=== PATIENT | male | born 1955 | race Caucasian/White ===

== ENCOUNTER → 2024-03-23 08:36 | Outpatient (REF) | payer MEDICARE, OTHER, SELFPAY ==
[2024-03-23 09:39] LABS: Urine Albumin Negative (Neg - Trace); Urine Bilirubin Negative (Negative); Urine Character Clear (Clear); Urine Color Yellow; Urine Glucose 3+ (Negative); Urine Ketone Negative (Negative); Urine Leukocyte Negative (Negative); Urine Nitrite Negative (Negative); Urine Occult Blood Negative (Negative); Urine Urobilinogen Negative (Neg - 1+)
[2024-03-23 10:18] LABS: Microalbumin, Random Urine < 0.6 mg/dl (0.6-1.7)
[2024-03-23 10:25] LABS: ALT (SGPT) 39 U/L (0-50); AST (SGOT) 29 U/L (17-59); Albumin 4.6 g/dl (3.5-5.0); Alkaline Phosphatase 53 U/L (38-126); Blood Urea Nitrogen 22 mg/dl (9-20); Calcium 9.3 mg/dl (8.4-10.2); Carbon Dioxide 22 mmol/L (22-30); Chloride 100 mmol/L (98-107); Glucose 190 mg/dl (70-99); HDL Cholesterol 43 mg/dl; LDL Cholesterol, Calculated 51 mg/dl; Potassium 4.4 mmol/L (3.5-5.1); Sodium 138 mmol/L (135-145); Total Bilirubin 1.9 mg/dl (0.2-1.3); Total Cholesterol 156 mg/dl (50-199); Total Protein 7.1 g/dl (6.3-8.2); Triglyceride 312 mg/dl (10-149); Very Low Density Lipoprotein 62 mg/dl (0-30); eGFR > 60.00
[2024-03-23 10:56] LABS: PSA, Total - Screen 2.88 ng/ml (0.0-4.0)
[2024-03-23 12:23] LABS: Glycohemoglobin (HgbA1c) 7.3 % (4.0-5.6)
== END ==
LOC: RCS 08:36
PROVIDERS: ATTENDING PHYSICIAN Internal Medicine
DX: I10 Essential (primary) hypertension (principal); R07.89 Other chest pain; Z12.5 Encounter for screening for malignant neoplasm of prostate; E11.9 Type 2 diabetes mellitus without complications; E78.2 Mixed hyperlipidemia
CPT/HCPCS: 93017; 36415; 80053; 80061; 81003; 82043; 83036; 93005; 93350; G0103

== ENCOUNTER 2024-11-30 14:44 | Emergency (ER) | payer MEDICARE, OTHER, SELFPAY ==
[2024-11-30 14:54] VITALS: BP 123/69
--- NOTE | 2024-11-30 17:58 | ED.GENMED ---
History of Present Illness
General
Chief Complaint: Post Operative Problem(s)
Source: patient
Exam Limitations: none
Time Seen by Provider: 11/30/24 17:16
Nursing documentation reviewed up to this point in time: agreed with
History of Present Illness
History of Present Illness:
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 Patient was evaluated by visiting nurse who spoke with CT surgery team
at [facility] who advised patient come to ED for an evaluation, including potential suture placement for hemostasis. Patient is currently taking aspirin and Plavix. Denies loss of sensation or weakness. Denies dizziness. Denies
shortness of breath.
Review of Systems
Review of Systems
Allergies reviewed?: Yes
All Other Systems: ROS reviewed and negative except as documented in HPI and ROS
Constitutional: Reports no symptoms
Respiratory: Reports no symptoms
Cardiac: Reports no symptoms
ABD/GI: Reports no symptoms
Musculoskeletal: Reports no symptoms
Skin: Reports other (Bleeding, left lower leg)
Neurological: Reports no symptoms
Phy Exam
Physical Exam
Physical Exam:
Physical Exam
General: no apparent distress, not acutely ill. afebrile
Head: nc/at. eomi
Neck: supple. normal range of motion
Neuro: alert and oriented x 3. no focal neurological deficits
Skin: an approx 1cm open wound noted over left anterior lower leg with oozing of nonpulsatile bleeding, without swelling/tenderness/erythema
Psychiatric: well kept. interactive and cooperative
Extremities: no edema. no calf tenderness.
Course
Vital Signs
Initial and Last Documented VS:
Initial Vital Signs
Temp Pulse Resp BP Pulse Ox
98.5 F 79 16 123/69 95
11/30/24 14:54 11/30/24 14:54 11/30/24 14:54 11/30/24 14:54 11/30/24 14:54
Last Documented Vital Signs
Temp Pulse Resp BP Pulse Ox
98.5 F 79 16 123/69 95
11/30/24 14:54 11/30/24 14:54 11/30/24 14:54 11/30/24 14:54 11/30/24 14:54
Procedures
Laceration Closure
Left Middle Lateral Leg:
Status of Wound: clean
Size of Wound in cm: 1
Description of Wound Edges: sharp
Preparation: cleaned with SurClens
Revision/Debridement: routine- no revision
Skin Closure Material: 5-0 nylon
Number of sutures: 2
MDM/Problems Addressed
MDM/Problems Addressed:
Wound well-approximated after placement of 2 sutures. Gel form with pressure dressing applied afterwards. Patient will follow-up with his CT surgeon next week, as scheduled, for reevaluation, at which time he will be reevaluated for potential
suture removal.
*Critical Care Note
Total Time (30-74mins, 75-104mins- exclusive of procedures): Not Applicable
ED Attending Note
-
Portions of this chart may have been created with voice recognition software.� Occasional wrong word or��sound alike� substitutions may have occurred due to the inherent limitations of voice recognition software.
Discharge Plan
Departure
Patient Disposition: Home (Routine Discharge)
Date of Disposition: 11/30/24
Time of Disposition: 17:58
Patient with high blood pressure during this ER visit?: Yes
Condition: Good
Discharge Problem:
Post-op bleeding
Instructions: Bleeding After Surgery
Referrals:
Gaston Mclaughlin DO [Family Provider, Internal Medicine]
Activity Restrictions/Additional Instructions:
As discussed, please follow-up with your CT surgeon next week, as scheduled, for reevaluation, including suture removal.
Interventions
Interventions:
*Risk Screen - Suicide Last Done: 11/30/24 14:54
*Neglect/Abuse Screening Last Done: 11/30/24 14:54
*Nursing Disposition Last Done: 11/30/24 18:36
ED-Skin Assessment Last Done: 11/30/24 17:50
Discharge Date and Time
Discharge Date/Time: 11/30/24 18:36
Print Language: SYRIAC
== END 2024-11-30 18:36 | disposition home or self-care (01) ==
LOC: EMR 14:44
PROVIDERS: EMERGENCY PHYSICIAN Emergency Medicine; FAMILY PHYSICIAN Internal Medicine
DX: L76.22 Postprocedural hemorrhage of skin and subcutaneous tissue following other procedure (principal); Z79.02 Long term (current) use of antithrombotics/antiplatelets; Z79.82 Long term (current) use of aspirin; Z95.1 Presence of aortocoronary bypass graft
CPT/HCPCS: 99282; 12001

== ENCOUNTER → 2025-02-10 10:39 | Outpatient (REF) | payer MEDICARE, OTHER, SELFPAY ==
[2025-02-10 12:21] LABS: ALT (SGPT) 27 U/L (0-50); AST (SGOT) 25 U/L (17-59); Albumin 4.6 g/dl (3.5-5.0); Alkaline Phosphatase 56 U/L (38-126); Blood Urea Nitrogen 22 mg/dl (9-20); Calcium 9.7 mg/dl (8.4-10.2); Carbon Dioxide 23 mmol/L (22-30); Chloride 108 mmol/L (98-107); Glucose 158 mg/dl (70-99); HDL Cholesterol 42 mg/dl; LDL Cholesterol, Calculated 53 mg/dl; Potassium 5.1 mmol/L (3.5-5.1); Sodium 140 mmol/L (135-145); Total Protein 7.2 g/dl (6.3-8.2); Very Low Density Lipoprotein 57 mg/dl (0-30); eGFR > 60.00
[2025-02-10 14:28] LABS: Glycohemoglobin (HgbA1c) 8.0 % (4.0-5.6)
== END ==
LOC: REG 10:39
PROVIDERS: FAMILY PHYSICIAN Internal Medicine; OTHER PHYSICIAN Internal Medicine Cardiovascular Disease
DX: E11.9 Type 2 diabetes mellitus without complications (principal); E78.2 Mixed hyperlipidemia; I25.10 Atherosclerotic heart disease of native coronary artery without angina pectoris
CPT/HCPCS: 36415; 80053; 80061; 83036; 84100